=== PATIENT | male | born 1980 | race Caucasian/White ===

== ENCOUNTER 2018-05-16 12:50 | Emergency (ER) | payer SELFPAY ==
[2018-05-16 13:33] VITALS: BP 129/75
--- NOTE | 2018-05-16 15:22 | ED Physician Documentation ---
History of Present Illness - Stated complaint Stated Complaint: SPIDER BITE LEG - Chief complaint Chief Complaint: Wound - History obtained from History obtained from: Patient, Family - History of Present Illness Timing: How many days ago (3-4) Pain level max: 5 Pain level now: 4 Quality: aching Improved by: rest Worsened by: movement - Additonal information Additional information: 37-year-old male with left lower extremity pain and swelling to the posterior thigh. Worse for the past 2-3 days. Also noticed a bruise on the medial aspect of the thigh. Does not recall any injury. 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 No recent travel. He also had some shortness of breath this morning. Thinks he felt better after taking his daughter's inhaler. No coughing. No fever. Review of Systems Constitutional: denies: Fever, Chills Nose: denies: Rhinorrhea / runny nose, Congestion Throat: denies: Sore throat Cardiac: denies: Chest pain / pressure Respiratory: reports: Dyspnea GI: denies: Abdominal Pain, Nausea, Vomiting, Diarrhea Skin: denies: Rash Musculoskeletal: denies: Neck pain, Back pain Neurologic: denies: Headache PD PAST MEDICAL HISTORY - Past Medical History Past Medical History: No - Past Surgical History Past Surgical History: No - Allergies Allergies/Adverse Reactions: Allergies Allergy/AdvReac Type Severity Reaction Status Date / Time Sulfa (Sulfonamide Allergy Severe Anaphylaxis Verified 05/16/18 13:27 Antibiotics) - Living Situation Living Situation: reports: With family Living Arrangement: reports: At home - Social History Does the pt drink ETOH?: Yes Does the pt have substance abuse?: No - Family History Family history: reports: Non contributory PD ED PE NORMAL - Vitals Vital signs reviewed: Yes - General General: Alert and oriented X 3, No acute distress - HEENT HEENT: Moist mucous membranes - Neck Neck: Supple, no meningeal sign - Cardiac Cardiac: RRR, Strong equal pulses - Respiratory Respiratory: No respiratory distress, Clear bilaterally - Abdomen Abdomen: Soft, Non tender, Non distended - Back Back: No CVA TTP, No spinal TTP - Derm Derm: Warm and dry, No rash - Extremities Extremities: No edema, No calf tenderness / cord, Other (TTP over the posterior L calf. NVI. mild ecchymosis to the L distal medial thigh. 1cm in diameter. no signs of infection.) - Neuro Neuro: Alert and oriented X 3 - Psych Psych: Normal mood, Normal affect Results - Vitals Vitals: Vital Signs - 24 hr 05/16/18 13:28 Temperature 36.9 C Heart Rate 92 Respiratory 16 Rate Blood Pressure 129/75 O2 Saturation 98 Oxygen O2 Source Room air - Labs Labs: Laboratory Tests 05/16/18 05/16/18 15:30 15:30 WBC 8.5 RBC 4.69 L Hgb 14.9 Hct 43.4 MCV 92.6 MCH 31.8 H MCHC 34.3 RDW 14.9 Plt Count 337 MPV 7.4 Neut # (Auto) 5.2 Lymph # (Auto) 2.5 [place] # (Auto) 0.6 Eos # (Auto) 0.2 Baso # (Auto) 0.0 Absolute Nucleated RBC 0.00 Nucleated RBC % 0.0 Sodium 140 Potassium 4.1 Chloride 102 Carbon Dioxide 29 Anion Gap 9.0 BUN 18 Creatinine 0.9 Estimated GFR (MDRD) 95 Glucose 87 Calcium 9.5 Total Bilirubin 0.7 AST 27 ALT 17 Alkaline Phosphatase 65 Total Protein 8.6 H Albumin 5.0 Globulin 3.6 Albumin/Globulin Ratio 1.4 Lipase 43 - Rads (name of study) CT PA Radiology: Prelim report reviewed, EMP read contemporaneously, See rad report (No evidence for pulmonary emboli. No acute findings. ) Duplex US LLE Radiology: Prelim report reviewed, EMP read contemporaneously, See rad report (No evidence for deep venous thrombosis. ) PD MEDICAL DECISION MAKING - ED course Complexity details: reviewed results, re-evaluated patient, considered differential, d/w patient, d/w family ED course: 37-year-old male with left thigh pain, left lower extremity swelling and dyspnea today. 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 Concern for possible DVT. Ultrasound is negative. Possible PE, CT is negative. We will continue supportive care and follow-up with his doctor. No evidence of infection. Patient counseled regarding signs and symptoms for which I believe and urgent re-evaluation would be necessary. Patient with good understanding of and agreement to plan and is comfortable going home at this time This document was made in part using voice recognition software. While efforts are made to proofread this document, sound alike and grammatical errors may occur. Departure - Departure Disposition: Home, Self Care Clinical Impression: Leg pain Qualifiers: Laterality: left Qualified Code(s): M79.605 - Pain in left leg Contusion Qualifiers: Encounter type: initial encounter Contusion area: thigh Laterality: left Quali fied Code(s): S70.12XA - Contusion of left thigh, initial encounter Condition: Good Instructions: ED Contusion Lower Ext Follow-Up: your,doctor as needed [Other] Comments: All of your testing is normal today. Return if you worsen. Follow-up with your doctor for further care. Discharge Date/Time: 05/16/18 18:00
[2018-05-16 15:46] LABS: BASOPHILS % (AUTO) 0.4 %; EOSINOPHILS # (AUTO) 0.2 10^3/uL (0.0-0.7); HGB - HEMOGLOBIN 14.9 g/dL (14.0-18.0); LYMPHOCYTES # (AUTO) 2.5 10^3/uL (1.5-3.5); LYMPHOCYTES % (AUTO) 29.6 %; MEAN CORPUSCULAR HEMOGLOBIN 31.8 pg (27.0-31.0); MEAN CORPUSCULAR HGB CONC 34.3 g/dL (32.0-36.0); MEAN CORPUSCULAR VOLUME 92.6 fL (80.0-94.0); MEAN PLATELET VOLUME 7.4 fL (7.4-11.4); MONOCYTES # (AUTO) 0.6 10^3/uL (0.0-1.0); MONOCYTES % (AUTO) 6.8 %; NEUTROPHILS # (AUTO) 5.2 10^3/uL (1.5-6.6); NEUTROPHILS % (AUTO) 61.2 %; PLT - PLATELET COUNT 337 10^3/uL (130-450); RED BLOOD COUNT 4.69 10^6/uL (4.70-6.10); RED CELL DISTRIBUTION WIDTH 14.9 % (12.0-15.0); WHITE BLOOD COUNT 8.5 x10^3/uL (4.8-10.8)
[2018-05-16 16:00] LABS: ALBUMIN/GLOBULIN RATIO 1.4 (1.0-2.2); BILIRUBIN,TOTAL 0.7 mg/dL (0.2-1.0); CALCIUM 9.5 mg/dL (8.5-10.3); CREATININE 0.9 mg/dL (0.6-1.2); TOTAL PROTEIN 8.6 g/dL (6.7-8.2)
[2018-05-16] MEDS ORDERED: IOVERSOL 320 100 ML VIAL IVP ONE ×2 (16:43→17:14)
--- NOTE | 2018-05-16 16:50 | Ultrasound Report ---
Reason: LLE swelling Procedure Date: 05/16/2018 Accession Number: [id number] / [id number] Procedure: US - Duplex Ext Veins Left CPT Code: FULL RESULT: EXAM: LEFT LOWER EXTREMITY VENOUS ULTRASOUND EXAM DATE: 05/16/2018 03:58 PM. CLINICAL HISTORY: LLE swelling. COMPARISON: None. TECHNIQUE: Real-time sonographic vascular imaging was performed by the vegetable sorter through the lower extremity utilizing both color-flow and Doppler spectral analysis. Multiple ambulatory service representative static images were saved for review. FINDINGS: Common Femoral Vein (CFV): Normal. CFV-GSV Junction: Normal. Profunda Femoral Vein (PFV): Normal. Femoral Vein (FV) Prox: Normal. Femoral Vein (FV) Mid: Normal. Femoral Vein (FV) Dist: Normal. Popliteal Vein: Normal. Posterior Tibial Veins: Normal. Peroneal Veins: Normal. Other: Ultrasound was performed of the area of clinical concern in the lower extremity. There is no fluid collection at the site of possible spider bite. IMPRESSION: No evidence for deep venous thrombosis. [facility]
--- NOTE | 2018-05-16 17:32 | CT Report ---
Reason: dyspnea, LLE swelling Procedure Date: 05/16/2018 Accession Number: [id number] / [id number] Procedure: CT - ANGIO CHEST W/WO CPT Code: FULL RESULT: EXAM: CT ANGIOGRAM CHEST EXAM DATE: 05/16/2018 04:51 PM. CLINICAL HISTORY: Dyspnea, left lower extremity swelling. COMPARISON: DUPLEX EXT VEINS LEFT 05/16/2018 3:58 PM. TECHNIQUE: Routine helical imaging was performed through the chest in the pulmonary arterial phase. IV Contrast: opti 320 80mL. Reconstructions: Coronal 3-D MIP reconstructions.Sagittal and coronal. In accordance with CT protocol optimization, one or more of the following dose reduction techniques were utilized for this exam: automated exposure control, adjustment of mA and/or KV based on patient size, or use of iterative reconstructive technique. FINDINGS: Mediastinum: No thoracic aortic aneurysm. Normal heart size. No mediastinal or hilar lymphadenopathy. No evidence for pulmonary emboli. Upper abdomen: No acute findings. Lungs: No consolidation, airspace disease, pleural effusion or pneumothorax. Bones: No acute bone findings. IMPRESSION: No evidence for pulmonary emboli. No acute findings. [facility]
== END 2018-05-16 18:00 | disposition home or self-care (01) ==
LOC: ED 12:50
DX: M79.605 Pain in left leg (principal); S70.12XA Contusion of left thigh, initial encounter; X58.XXXA Exposure to other specified factors, initial encounter; R06.00 Dyspnea, unspecified
CPT/HCPCS: 36415; 71275; 80053; 83690; 85025; 93971; 99283; Q9967